=== PATIENT | female | born 1975 | race Caucasian/White ===

== ENCOUNTER 2017-09-24 10:59 | Inpatient (IN) | payer OTHER ==
[2017-10-02] MEDS ORDERED: LR 500 ML/Oxytocin 10 units 500 ML IV SCH ×2 (06:29)
[2017-10-02] MEDS ORDERED: Promethazine HCl 25 MG/ML VIAL IM PRN (06:29)
[2017-10-02] MEDS ORDERED: Acetaminophen/Codeine 30-300mg Tablet PO PRN ×2 (06:29→20:21)
[2017-10-02] MEDS ORDERED: HYDROcodone/Acetaminophen 5/325 mg Tablet PO PRN ×2 (06:29→20:21)
[2017-10-02] MEDS ORDERED: Acetaminophen 500 MG TAB PO PRN (06:29)
[2017-10-02] MEDS ORDERED: Lidocaine 1% (PF) 30 ML VIAL SC PRN (06:29)
[2017-10-02] MEDS ORDERED: Ondansetron HCl/PF 4 MG/2 ML Vial IVP PRN ×2 (06:29→20:21)
[2017-10-02] MEDS ORDERED: Misoprostol 200 MCG TAB PR PRN (06:29)
[2017-10-02] MEDS ORDERED: Ibuprofen 800 MG TAB PO PRN (06:29)
[2017-10-02 06:39] VITALS: BMI 22.1
[2017-10-02] MEDS: Lactated Ringer's 1,000 ML IV SCH ×2 (06:44→14:28)
[2017-10-02 06:50] LABS: Hematocrit 33.9 % (36.0-47.0); Mean Platelet Volume 7.9 fL (7.4-10.4); Red Blood Cell (RBC) Count 3.83 mill/uL (4.20-5.40); White Blood Cell (WBC) Count 6.1 thou/uL (4.8-10.8)
[2017-10-02] MEDS ORDERED: Fentanyl 4 mcg/Marc 0.1% Cadd 100 ML ONE (15:17)
[2017-10-02] MEDS: LR / Pitocin 40 units/1000 ml 1,000 ML IV PRN ×2 (16:15→18:49)
[2017-10-02] MEDS ORDERED: Benzocaine/Menthol 20-0.5% 60 ML CAN TOP PRN (20:21)
[2017-10-02] MEDS ORDERED: Milk Of Magnesia 30 ML UDCUP PO PRN (20:21)
[2017-10-02] MEDS ORDERED: LR / Pitocin 40 units/1000 ml 1,000 ML IV SCH (20:21)
[2017-10-02] MEDS ORDERED: Bisacodyl 10 MG SUPP PR PRN (20:21)
[2017-10-02] MEDS ORDERED: Bupivacaine 0.25% HCL 30 ML VIAL ONE (20:22)
[2017-10-02] MEDS ORDERED: Prenatal Vitamin 1 TAB PO SCH (20:45)
[2017-10-02] MEDS ORDERED: Docusate (Surfak) 240 MG CAP PO SCH (21:00)
[2017-10-02 21:17] VITALS: BP 102/57; TEMP 98.3
[2017-10-02] MEDS ORDERED: Ibuprofen 800 MG TAB PO SCH (22:00)
[2017-10-03] MEDS ORDERED: Ferrous Sulfate 325 MG TAB PO SCH (08:00)
[2017-10-03] MEDS ORDERED: Prenatal Vitamin 1 TAB PO SCH (09:00)
== END 2017-10-02 21:50 | disposition home or self-care (01) | DRG 775 ==
LOC: L&D 10-02 06:09
PROVIDERS: ADMIT Family Medicine; ATTEND Family Medicine
PROC: 10E0XZZ Delivery of Products of Conception, External Approach (ICD-10-PCS; principal; 2017-10-02)
PROC: 0U7C7ZZ Dilation of Cervix, Via Natural or Artificial Opening (ICD-10-PCS; 2017-10-02)
PROC: 3E0P3VZ Introduction of Hormone into Female Reproductive, Percutaneous Approach (ICD-10-PCS; 2017-10-02)
DX: O48.0 Post-term pregnancy (principal); Z37.0 Single live birth; Z3A.41 41 weeks gestation of pregnancy
CPT/HCPCS: 36415; 85027; 86780; 87340; C1726; J2001; J7120; S0020

== ENCOUNTER 2017-10-14 08:07 | Day surgery (SDC) | payer OTHER ==
[2017-10-14 09:00] LABS: #Eosinphils 0.1 thou/uL (0.0-0.7); #Lymphocytes 1.4 thou/uL (1.20-3.40); #Monocytes 0.5 thou/uL (0.11-0.59); %Basophils 0.7 % (0.0-1.0); %Eosinophils 2.7 % (0.0-10.0); %Lymphocytes 28.4 % (21.0-51.0); Hematocrit 43.9 % (36.0-47.0); Mean Platelet Volume 6.9 fL (7.4-10.4); Red Blood Cell (RBC) Count 4.87 mill/uL (4.20-5.40)
[2017-10-14] MEDS ORDERED: CEFAZOLIN/Water 2 GM/20 ML SYRINGE ONE (09:43)
[2017-10-14] MEDS ORDERED: Bupivacaine PF 0.5% 30 ML VIAL ONE (09:45)
--- NOTE | 2017-10-14 17:10 | OP ---
DATE OF PROCEDURE: 10/14/2017 PREOPERATIVE DIAGNOSIS: Right foot extensor hallucis longus laceration. POSTOPERATIVE DIAGNOSIS: Right foot extensor hallucis longus laceration. PROCEDURES PERFORMED: 1. Right foot open primary repair of extensor hallucis longus tendon laceration. 2. Placement of posterior splint, right lower extremity. SURGEON: Thom Staton M.D. NEUROCRITICAL CARE PHYSICIAN: Ramón Mendoza PA-C. BLOOD LOSS: Minimal. COMPLICATIONS: None. ANESTHETIC: The patient did have a spinal anesthetic only, no IV sedation. No other medications. IMPLANTS: There were no implants other than sutures. DISPOSITION: She went back to Day Stay in stable condition. INDICATIONS: A 42-year-old female who just over 24 hours ago inadvertently dropped a knife on the to p of her foot and cut her extensor hallucis longus tendon. At this time, she is presenting for [facility]. DESCRIPTION OF PROCEDURE: After all appropriate consent forms were explained and signed, she was ayla en back to the OR, and was given a spinal. We then placed a tourniquet on the right leg, prepped and draped the leg from the knee down in standard surgical fashion. Limb was exsanguinated and tourniqu et was taken up to 250 mmHg. Under loupe magnification, the small horizontal laceration was extended distally and proximally in Z fashion down through skin only. The bipolar cautery was used to coagul ate any brisk venous bleeding. Fortunately, we were able to find the cut extensor hallucis longus te ndon, the proximal portion had not retracted, both ends were removed from out of the paratenon to exp ose the ends. The ends were cleaned off of any clot and a Luis needle was placed through the tendon s proximally and distally to allow for easy repair of the lacerated ends. We then used 4.0 Ethibond sutures, placed multiple [id number] sutures circumferentially around the tendon, giving us a erwin e strong repair. We then removed the Luis needle, the toe was a nice repair and was found to have n ice tension holding up the distal phalanx. At this time, we thoroughly irrigated our wound with sali ne. We then placed multiple interrupted Prolene sutures to close the skin. We then infiltrated circ umferentially around our operative site with 0.5% Marcaine. We then placed a postoperative dressing to include a posterior splint with a toe plate holding to be throughout in full extension. This was held up until this dried. Tourniquet had been let down once the skin was closed and the foot pinked up nicely. At this time, the patient was taken back to Day Stay in stable condition. All counts wer e correct at the end of the case and she did receive some preoperative IV antibiotics.
== END 2017-10-14 14:30 | disposition home or self-care (01) ==
LOC: SDC 08:07
PROVIDERS: ATTEND Orthopaedic Surgery
PROC: 0LQV0ZZ Repair Right Foot Tendon, Open Approach (ICD-10-PCS; principal; 2017-10-14)
DX: S96.121A Laceration of muscle and tendon of long extensor muscle of toe at ankle and foot level, right foot, initial encounter (principal); W26.0XXA Contact with knife, initial encounter; Z90.89 Acquired absence of other organs
CPT/HCPCS: 36415; 85025; G8978-GP-CI; G8979-GP-CI; G8980-GP-CI; S0020

== ENCOUNTER 2019-02-15 14:36 | Outpatient (CLI) | payer OTHER ==
--- NOTE | 2019-02-15 15:45 | RAD ---
Lachelle hip arthrogram, under fluoroscopic guidance CLINICAL HISTORY: Chronic left hip pain. No known injury. PROCEDURE: Informed consent was obtained from the patient. [employer] imaging of left hip was performed. T he patient's left hip was prepped and draped in a standard sterile fashion. The left femoral pulse wa s palpated and marked prior to the procedure. Using fluoroscopic guidance, the left hip joint was loc alized. Topical anesthesia with buffered 1% lidocaine was performed. Subsequently, uneventful access into the left hip joint was performed with a 22-gauge needle, which was confirmed with a small volume of radiopaque contrast. An 8 cc contrast cocktail containing gadolinium, radiopaque contrast, saline , lidocaine and epinephrine was instilled into the left hip joint. Fluoroscopic imaging was acquired and was stored for documentation. The needle was removed. There were no procedural complications. Pat ient tolerated the procedure well. Patient was transferred to MRI Department to undergo MRI arthrogram. Reference separate report for fu rther details. IMPRESSION: Technically successful left hip arthrogram under fluoroscopic guidance.
--- NOTE | 2019-02-15 17:45 | MRI ---
MRI LEFT HIP WITH AND WITHOUT CONTRAST: 02/15/19 HISTORY: Pain. M25.552. COMPARISON: None. FINDINGS: The lumbar spine at L5-S1, there are Modic type I end plate changes with disc degeneration and osteop hyte formation. No dilated loops of large or small bowel within the pelvis. Left adnexal cyst is pres ent. No stress edema. No fracture. No malalignment. There appears to be mildly increased anteversion of th e left hip, although approximately 28 degrees, though limited on this study as this is only a hip MRI and not a pelvis MRI. There is high grade cartilage delamination along the anterior acetabulum with adjacent full thickness cartilage fissuring. There is associated subcortical cysts. There is also adjacent cartilage delamin ation on the femoral head. There is extension of contrast within the subcortical cyst. Ligamentum teres is intact. There is tear of the anterior and superior labrum throughout the substanc e with extensive fraying. There is a small volume fluid within the iliopsoas bursa. Iliopsoas tendons and hamstring tendons are intact. The gluteus tendons are intact. Muscle signal and bulk is normal. IMPRESSION: 1. Increased acetabular version with degenerative tearing throughout the anterior and superior l abrum with fraying throughout its substance. 2. 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 3. Abnormal for age degenerative disc space narrowing at L5-S1 with disc desiccation and osteoph yte formation. 4. No avascular necrosis. 5. Left adnexal cyst. POS: [facility]
== END 2019-02-15 14:37 | disposition home or self-care (01) ==
LOC: RAD 14:36
PROVIDERS: ATTEND Orthopaedic Surgery
DX: M25.552 Pain in left hip (principal); N83.8 Other noninflammatory disorders of ovary, fallopian tube and broad ligament; M48.07 Spinal stenosis, lumbosacral region
CPT/HCPCS: 27093

== ENCOUNTER 2019-03-03 10:42 | Outpatient (CLI) | payer OTHER ==
[~2019-03-03 10:42] MED LIST: Iopamidol 300 61% 30 ML VIAL ONE
[2019-03-03] MEDS ORDERED: METHYLPREDNISOLONE ACETATE IM SCH (11:15)
[2019-03-03] MEDS ORDERED: LIDOCAINE 1% IM SCH (11:15)
--- NOTE | 2019-03-03 11:43 | RAD ---
XR Hip Lt steroid injection HISTORY:Left hip pain COMPARISON: MRI study of 02/15/2019 FINDINGS: After informed consent was obtained the patient was prepped and draped in the normal steril e fashion. Local anesthesia obtained with 1% lidocaine mixed with sodium bicarbonate. A 22-gauge needle was inserted into the lateral third of the joint space without difficulty. 80 mg of Solu-Medro l were injected after a 1 cc injection of contrast confirmed intra-articular position of the needle. Patient tolerated procedure well without complications. IMPRESSION: Successful left hip injection
== END 2019-03-03 10:43 | disposition home or self-care (01) ==
LOC: RAD 10:42
PROVIDERS: ATTEND Orthopaedic Surgery
DX: M16.12 Unilateral primary osteoarthritis, left hip (principal)
CPT/HCPCS: 27093; J1040; J3490

== ENCOUNTER 2023-07-27 08:13 | Outpatient (CLI) | payer OTHER | END 2023-07-27 08:14 | disposition home or self-care (01) | LOC: SCSRAD 08:13 | PROVIDERS: ATTEND Family Medicine | DX: M54.50 Low back pain, unspecified (principal); M41.9 Scoliosis, unspecified; M47.817 Spondylosis without myelopathy or radiculopathy, lumbosacral region | CPT/HCPCS: 72100 ==